=== PATIENT | female | born 1965 | race Caucasian/White ===

== ENCOUNTER 2018-02-18 18:25 | Observation (INO) ==
[2018-02-18 18:39] VITALS: BMI 20.9
[2018-02-18] MEDS ORDERED: ONDANSETRON 4 MG/2 ML INJECTION IVP PRN (20:51)
[2018-02-18] MEDS ORDERED: NITROGLYCERIN 0.4 MG SUBLINGUAL TABLET SL PRN (20:51)
[2018-02-18] MEDS ORDERED: MAGNESIUM 250 MG PO SCH (21:00)
[2018-02-18] MEDS ORDERED: ATORVASTATIN 20 MG TABLET PO SCH (21:00)
[2018-02-18] MEDS ORDERED: ASCORBIC ACID PO SCH (21:00)
[2018-02-18] MEDS: FAMOTIDINE 20 MG TABLET PO SCH (22:03)
[2018-02-18] MEDS: ENOXAPARIN 40 MG/0.4 ML INJECTION SQ SCH (22:03)
[2018-02-18] MEDS: ASPIRIN *EC* 81 MG TABLET PO SCH (22:04)
[2018-02-18] MEDS ORDERED: DOCUSATE SODIUM 100 MG CAPSULE PO PRN (22:16)
[2018-02-18] MEDS ORDERED: DiphenhydrAMINE 25 MG CAPSULE PO PRN (22:17)
[2018-02-18] MEDS ORDERED: ACETAMINOPHEN 325 MG TABLET PO PRN (22:17)
[2018-02-18] MEDS ORDERED: CALCIUM CARBONATE Chewable 500mg TABLET PO PRN (22:18)
[2018-02-19 08:15] VITALS: RESP 16; TEMP 98.3; O2SAT 100
[2018-02-19] MEDS ORDERED: MULTI-VITAMIN + MINERAL TABLET PO SCH (09:00)
[2018-02-19] MEDS ORDERED: ASCORBIC ACID 500 MG TABLET PO SCH (09:00)
[2018-02-19] MEDS ORDERED: MAGNESIUM OXIDE 400 MG TABLET PO SCH (09:00)
[2018-02-19] MEDS ORDERED: CALCIUM 500 + VIT D 200 TABLET PO SCH (09:00)
[2018-02-19] MEDS ORDERED: NON-FORMULARY MEDICATION 1 EACH EACH (Multivitamin [One Daily Multivitamin] 1 EACH) PO SCH (09:00)
--- NOTE | 2018-02-19 09:44 | XRay Report ---
Indication: chest pain PROCEDURE: XR chest 1V: Encounter: Initial Comparison: None. Findings: There is moderate overlying EKG lead artifact. Heart size normal. The lungs are clear. There is no focal opacity to suggest atelectasis or pneumonia. No mediastinal or hilar adenopathy. No pleural effusion. There is no significant tortuosity of the descending thoracic aorta. There is no significant degenerative disc disease of the thoracic spine. IMPRESSION: No acute process. .
[2018-02-19] MEDS: ENOXAPARIN 40 MG/0.4 ML INJECTION SQ SCH (11:27)
--- NOTE | 2018-02-19 11:33 | Cardiology History & Physical ---
History of Present Illness Chief complaint: palpitations HPI: Shayy is a 53 year old female from [facility] who was taking Azithromycin for pharyngitis and began having palpitations associated with dizziness. She was seen in the clinic and thought to have a reaction to the Z-pac and was treated with steroids and released home. Yesterday she again felt palpitations and returned to the clinic. EKG showed SR, HR 81. Labs were essentially negative except for the troponin which was 0.170. I was contacted for transfer to [facility] for observation admission in the care of Dr. Sage for further evaluation and treatment if necessary. She is examined in her room on the Surgical unit where she is NPO. She denies any chest pain, pressure, tightness. Has not had palpitations while in the hospital. Review of telemetry shows SR. She is scheduled to have a Holter monitor put on today in the [facility]. Review of Systems - Constitutional Constitutional: Absent: chills, fatigue, fever(s) - EENMT Eyes: Absent: change in vision Balance: Absent: vertigo Mouth/Throat: Absent: sore throat - Cardiovascular Cardiovascular: Present: palpitations. Absent: chest pain, syncope, dyspnea on exertion, orthopnea, heart murmur Rhythm: Absent: abnormal rhythm Vascular: Absent: pedal edema - Respiratory Respiratory: Absent: cough, dyspnea, dyspnea on exertion - Gastrointestinal Gastrointestinal: Absent: constipation, diarrhea, nausea, vomiting - Genitourinary Genitourinary: Absent: dysuria - Integumentary/Breasts Integumentary: Absent: rash - Neurological Neurological: Present: dizziness - Endocrine Endocrine: Present: palpitations PFS Patient Stated Medical History Heart Murmur Yes Gastroesophageal Reflux Yes: 10-15 years ago Disease Anemia Yes: 15-20 years ago Post Menopausal Yes Surgical History: none Family History: Maternal grandmother - DM, CVA Paternal grandmother - DM - Social History Smoking status: Never smoker Substance use type: does not use Alcohol intake frequency: holidays/special occasions only Household members: spouse Current occupational status: employed Current residence: Apartment/Private Home Medications Home Medications Medication Instructions Recorded Confirmed Type Ascorbic Acid [Vitamin C] 2 tab PO BID 02/18/18 02/18/18 History Calcium 500 + D [Os Matt-D 500] 1 tab PO DAILY 02/18/18 02/18/18 History Garlic 1 each PO DAILY PRN 02/18/18 02/18/18 History Magnesium 250 mg PO HS 02/18/18 02/18/18 History Multivitamin [One Daily 1 each PO DAILY 02/18/18 02/18/18 History Multivitamin] Vitamin B Complex Vit C No.4 150 mg PO DAILY 02/18/18 02/18/18 History [Super B Complex] Vitamin E 1,000 unit PO HS PRN 02/18/18 02/18/18 History Allergies Allergy/AdvReac Type Severity Reaction Status Date / Time azithromycin Allergy Palpitation Verified 02/18/18 18:51 s Penicillins Allergy Hives Verified 02/18/18 18:51 Sulfa (Sulfonamide Allergy Hives Verified 02/18/18 18:51 Antibiotics) Exam Vital signs: Temperature 98.3 F 02/19/18 08:00 Pulse Rate 75 02/19/18 08:00 Respiratory Rate 16 02/19/18 08:00 Blood Pressure 118/70 02/19/18 08:00 Pulse Oximetry 100 02/19/18 08:00 - Constitutional no acute distress, well nourished, cooperative - Routine HEENT Exam Head: Present: normocephalic ENT: Present: mucous membranes moist - Routine Neck Exam Absent: JVD, carotid bruit - Routine Chest/Breast/Axilla Exam Chest wall: Absent: tenderness - Routine Respiratory Exam Present: CTA bilaterally. Absent: dyspnea, rales, wheezes - Routine Cardiovascular Exam Present: RRR, no murmur - Routine Abdominal Exam Present: soft, non tender - Routine Extremities Exam Present: no edema, pulses intact - Routine Skin Exam Present: intact, dry, warm - Routine Neurological Exam Present: alert, oriented X3 - Routine Psychiatric Exam Present: normal affect, normal thought process Results 02/18/18 21:20 02/18/18 21:20 Cardiac Enzymes 02/18/18 02/19/18 02/19/18 Range/Units 21:20 04:14 08:55 AST 34 (14-36) U/L Troponin I < 0.012 < 0.012 < 0.012 (0-0.12) ng/ml Lipids 02/19/18 Range/Units 04:14 Triglycerides 86 (35-135) mg/dL Cholesterol 155 (132-199) mg/dL HDL Cholesterol 46 (40-60) mg/dL Cholesterol/HDL Ratio 3.4 (0-4.0) RATIO CBC 02/18/18 Range/Units 21:20 WBC 8.8 (4.5-11.0) T/MM3 RBC 4.39 (4.00-5.20) M/MM3 Hgb 12.9 (12-16) GM/DL Hct 37.4 (36-46) % Plt Count 258 (130-400) T/MM3 Neut # (Auto) Not performed Lymph # (Auto) Not performed [place] # (Auto) Not performed Eos # (Auto) Not performed Baso # (Auto) Not performed Comprehensive Metabolic Panel 02/18/18 Range/Units 21:20 Sodium 145 (136-146) MEQ/L Potassium 4.2 (3.6-5) MEQ/L Chloride 111 H (98-107) MEQ/L Carbon Dioxide 21 L (22-30) MEQ/L BUN 13.0 (7-17) MG/DL Creatinine 0.7 (0.7-1.2) mg/dL Glucose 241 H (65-110) MG/DL Calcium 8.9 (8.4-10.2) MG/DL AST 34 (14-36) U/L ALT 27 (1-35) U/L Alkaline Phosphatase 69 (38-126) U/L Total Protein 6.6 (6.3-8.2) g/dL Albumin 4.1 (3.5-5.0) g/dL Intake and Output 02/18/18 02/19/18 02/19/18 22:59 06:59 14:59 Output Total 200 / 200 Balance -200 / -200 Output: Urine 200 / 200 Other: Urine Appearance Clear Urine Color Yellow Urine Odor Normal Weight 126 lb 5.198 oz 128 lb 1.417 oz Patient Weight 02/20/18 06:59 Weight 128 lb 1.417 oz - Imaging and Cardiology Echo: pending Imaging & Cardiology Narrative: Date of Exam: 02/18/18 Ordering Provider: Dilia Wayne APRN Type of Exam(s): XR chest 1V Reason for Exam(s): chest pain Indication: chest pain PROCEDURE: XR chest 1V: Encounter: Initial Comparison: None. Findings: There is moderate overlying EKG lead artifact. Heart size normal. The lungs are clear. There is no focal opacity to suggest atelectasis or pneumonia. No mediastinal or hilar adenopathy. No pleural effusion. There is no significant tortuosity of the descending thoracic aorta. There is no significant degenerative disc disease of the thoracic spine. IMPRESSION: No acute process. 02/19/18 11:36 EKG interpretations - EKG EKG results cardiology: sinus rhythm - Blocks, axis, hypertrophy, ST abn Chamber hypertrophy or enlargement: left atrial enlargement or conduction defect Hospital Course This is a general summary of the patient's hospital course. For more details refer to the complete medical record. Time spent with patient: 25 - 35 minutes Resuscitation Status: Full Code Assessment and Plan - Assessment and Plan (1) Heart palpitations Current visit: Yes Status: Acute - first noticed 2 weeks ago after taking Sudafed - again after azithromycin - no arrhythmia seen on telemetry - needs Holter monitor - Troponin negative X3 - Lipids WNL - 2D echo - CXR WNL
[2018-02-19] MEDS: ASPIRIN *EC* 81 MG TABLET PO SCH (12:20)
[2018-02-19] MEDS: FAMOTIDINE 20 MG TABLET PO SCH (12:20)
[2018-02-19 15:58] VITALS: BP 117/64
--- NOTE | 2018-02-19 16:30 | Discharge Summary ---
Discharge Information Date of admission: 02/18/18 18:25 Anticipated date of discharge: 02/19/18 Attending Physician: Davey Sage MD Primary care physician: Donald Jacobson APRN - Discharge Diagnosis (1) Heart palpitations Status: Acute palpitations - Laboratory Labs: 02/18/18 21:20 02/18/18 21:20 - Radiology Radiology: Date of Exam: 02/18/18 Ordering Provider: Dilia Wayne APRN Type of Exam(s): XR chest 1V Reason for Exam(s): chest pain Indication: chest pain PROCEDURE: XR chest 1V: Encounter: Initial Comparison: None. Findings: There is moderate overlying EKG lead artifact. Heart size normal. The lungs are clear. There is no focal opacity to suggest atelectasis or pneumonia. No mediastinal or hilar adenopathy. No pleural effusion. There is no significant tortuosity of the descending thoracic aorta. There is no significant degenerative disc disease of the thoracic spine. IMPRESSION: No acute process. . History of Present Illness HPI: Shayy is a 53 year old female from [facility] who was taking Azithromycin for pharyngitis and began having palpitations associated with dizziness. She was seen in the clinic and thought to have a reaction to the Z-pac and was treated with steroids and released home. Yesterday she again felt palpitations and returned to the clinic. EKG showed SR, HR 81. Labs were essentially negative except for the troponin which was 0.170. I was contacted for transfer [place] [facility] [place] observation admission in the care of Dr. Sage for further evaluation and treatment if necessary. She is examined in her room on the Surgical unit where she is NPO. She denies any chest pain, pressure, tightness. Has not had palpitations while in the hospital. Review of telemetry shows SR. She is scheduled to have a Holter monitor put on today in the [facility]. Hospital Course This is a general summary of the patient's hospital course. For more details refer to the complete medical record. Hospital course: Heart palpitations Current visit: Yes Status: Acute - first noticed 2 weeks ago after taking Sudafed - again after azithromycin - no arrhythmia seen on telemetry - needs Holter monitor - Troponin negative X3 - Lipids WNL - 2D echo - CXR WNL Echo normal per Dr. Sage, report pending - Schedule for KAYLA monitor as an outpatient. Exam Vital signs: Temperature 98.3 F 02/19/18 15:57 Pulse Rate 75 02/19/18 15:57 Respiratory Rate 16 02/19/18 15:57 Blood Pressure 117/64 02/19/18 15:57 Pulse Oximetry 100 02/19/18 15:57 - Constitutional no acute distress, well nourished, cooperative - Routine HEENT Exam Head: Present: normocephalic ENT: Present: mucous membranes dry - Routine Neck Exam Absent: JVD, carotid bruit - Routine Chest/Breast/Axilla Exam Chest wall: Absent: tenderness - Routine Respiratory Exam Present: CTA bilaterally. Absent: dyspnea, rales, wheezes - Routine Cardiovascular Exam Present: RRR, no murmur - Routine Abdominal Exam Present: soft, non tender - Routine Extremities Exam Present: no edema - Routine Skin Exam Present: intact, dry, warm - Routine Neurological Exam Present: alert, oriented X3 - Routine Psychiatric Exam Present: normal affect, normal thought process Results 02/18/18 21:20 02/18/18 21:20 Cardiac Enzymes 02/18/18 02/19/18 02/19/18 Range/Units 21:20 04:14 08:55 AST 34 (14-36) U/L Troponin I < 0.012 < 0.012 < 0.012 (0-0.12) ng/ml Lipids 02/19/18 Range/Units 04:14 Triglycerides 86 (35-135) mg/dL Cholesterol 155 (132-199) mg/dL HDL Cholesterol 46 (40-60) mg/dL Cholesterol/HDL Ratio 3.4 (0-4.0) RATIO CBC 02/18/18 Range/Units 21:20 WBC 8.8 (4.5-11.0) T/MM3 RBC 4.39 (4.00-5.20) M/MM3 Hgb 12.9 (12-16) GM/DL Hct 37.4 (36-46) % Plt Count 258 (130-400) T/MM3 Neut # (Auto) Not performed Lymph # (Auto) Not performed [place] # (Auto) Not performed Eos # (Auto) Not performed Baso # (Auto) Not performed Comprehensive Metabolic Panel 02/18/18 Range/Units 21:20 Sodium 145 (136-146) MEQ/L Potassium 4.2 (3.6-5) MEQ/L Chloride 111 H (98-107) MEQ/L Carbon Dioxide 21 L (22-30) MEQ/L BUN 13.0 (7-17) MG/DL Creatinine 0.7 (0.7-1.2) mg/dL Glucose 241 H (65-110) MG/DL Calcium 8.9 (8.4-10.2) MG/DL AST 34 (14-36) U/L ALT 27 (1-35) U/L Alkaline Phosphatase 69 (38-126) U/L Total Protein 6.6 (6.3-8.2) g/dL Albumin 4.1 (3.5-5.0) g/dL Intake and Output 02/19/18 02/19/18 02/19/18 06:59 14:59 22:59 Output Total 200 / 200 Balance -200 / -200 Output: Urine 200 / 200 Other: Urine Appearance Clear Urine Color Yellow Urine Odor Normal # Voids 1 Weight 128 lb 1.417 oz Patient Weight 02/20/18 06:59 Weight 128 lb 1.417 oz - Imaging and Cardiology Echo: pending - EKG Interpretation EKG: sinus rhythm Discharge Plan - Med Rec/Dispo Referrals/Follow Up: Davey Sage MD [Physician] - 1 Week Prescriptions: Continue Multivitamin [One Daily Multivitamin] 1 each PO DAILY Ascorbic Acid [Vitamin C] 2 tab PO BID Vitamin E 1,000 unit PO HS PRN PRN Reason: palpitation Garlic 1 each PO DAILY PRN PRN Reason: Prn Orders Magnesium 250 mg PO HS Vitamin B Complex Vit C No.4 [Super B Complex] 150 mg PO DAILY Calcium 500 + D [Os Matt-D 500] 1 tab PO DAILY - Disposition 01 Discharged Home, Self-Care - Dismissal Complete Discharge Instructions are:: Complete
[2018-02-19 16:36] VITALS: PULSE 82
--- NOTE | 2018-02-19 19:29 | Echocardiogram ---
DATE OF PROCEDURE 02/19/2018 PROCEDURE PERFORMED Transthoracic echocardiography, M-mode assessment, full color spectral Doppler assessment. FINDINGS 1. LEFT VENTRICLE: Left ventricle appears normal in size. Normal left ventricular wall thickness noted. Estimated left ventricular systolic function is normal. Estimated LVEF 60%-65%. 2. RIGHT VENTRICLE: Right ventricle appears normal in size. Normal right ventricular wall thickness noted. Normal right ventricle systolic function noted. 3. RIGHT ATRIUM: Right atrium appears normal in size. 4. LEFT ATRIUM: Left atrium appears normal in size. 5. MITRAL VALVE : Mitral valve appears normal structurally. No mitral stenosis noted. Trivial mitral regurgitation noted. 6. AORTIC VALVE: Aortic valve appears tricuspid. No significant aortic stenosis noted. No significant aortic vegetations noted. 7. TRICUSPID VALVE: Tricuspid valve appears structurally normal. Mild tricuspid regurgitation noted. 8. PULMONIC VALVE: Pulmonic valve not well visualized on today's study. 9. Inferior vena cava normal in size. Normal respirophasic variations noted. 10. PULMONARY ARTERY: Estimated pulmonary artery systolic pressure is 25-30 mmHg. CONCLUSION 1. Normal left ventricular systolic function. Estimated LVEF 60%-65%. 2. Normal right ventricle systolic function. 3. Trivial mitral regurgitation noted. 4. Mild tricuspid regurgitation noted. 5. Normal IVC size with normal respiratory variation. MTDD
== END 2018-02-19 17:25 | disposition home or self-care (01) ==
LOC: SRG
PROVIDERS: ADMIT Internal Medicine Interventional Cardiology; ATTEND Internal Medicine Interventional Cardiology